=== PATIENT | female | born 1980 | race Caucasian/White ===

== ENCOUNTER 2017-12-19 21:03 | Emergency (ER) | payer OTHER ==
[2017-12-19] MEDS ORDERED: Sodium Chloride 0.9% 1000 ML 1,000 ML IV STA (21:40)
[2017-12-19] MEDS ORDERED: Zofran 4 MG/2 ML VIAL IV ONE (21:40)
[2017-12-19] MEDS ORDERED: Sodium Chloride 0.9% 1000 ML 1,000 ML ONE (21:43)
[2017-12-19] MEDS ORDERED: Zofran 4 MG/2 ML VIAL ONE (21:43)
[2017-12-19] MEDS ORDERED: TORAdol 30 mg Injection IV ONE (21:44)
--- NOTE | 2017-12-19 21:44 | ERPHSYRPT ---
- History of Present Illness Time Seen by Provider: 12/19/17 21:41 Historian: patient Exam Limitations: no limitations Patient Subjective Stated Complaint: began vomiting aroun 1430; fever began today Triage Nursing Assessment: Tmax 100 at home, vomiting x 8-9 since 1430, Physician History: 37 y/o female comes to the ER with complaints of nausea and vomiting that started this afternoon. Pt mentions she thinks she may have food poisoning. Pt has vomited 8 times and is not able to keep anything down. Pt reports having right sided abdominal pain after having vomiting episodes. Pt has had her gallbladder taken out. Pt describes the pain as sharp, intermittent, 6/10 and pt has not taken any pain meds. Pt also admits to having low grade fever of 100.6 at home. Pt denies any diarrhea, bloody stools or urinary symptoms. Timing/Duration: today Activities at Onset: none Quality: aching Abdominal Pain Onset Location: RUQ Pain Radiation: no radiation Severity of Pain-Max: moderate Severity of Pain-Current: moderate Modifying Factors: Improves With: nothing Associated Symptoms: nausea, vomiting Previous symptoms: no prior history Allergies/Adverse Reactions: cefaclor [From Ceclor] Allergy (Severe, Verified 03/24/16 12:23) anaphylaxis clindamycin HCl [From Cleocin] Allergy (Severe, Verified 03/24/16 12:23) anaphylaxis clindamycin palmitate HCl [From Cleocin] Allergy (Severe, Verified 03/24/16 12: 23) anaphylaxis clindamycin phosphate [From Cleocin] Allergy (Severe, Verified 03/24/16 12:23) anaphylaxis Home Medications: Vits W-Ca,Fe,FA(<1Mg) [] 1 tab PO DAILY 03/18/16 [History] Hx Tetanus, Diphtheria Vaccination/Date Given: Yes Hx Influenza Vaccination/Date Given: No Hx Pneumococcal Vaccination/Date Given: Yes Immunizations Up to Date: Yes - Review of Systems Constitutional: No Fever, No Chills Eyes: No Symptoms Ears, Nose, & Throat: No Symptoms Respiratory: No Cough, No Dyspnea Cardiac: No Chest Pain, No Edema, No Syncope Abdominal/Gastrointestinal: Abdominal Pain, Nausea, Vomiting, No Diarrhea Genitourinary Symptoms: No Dysuria Musculoskeletal: No Back Pain, No Neck Pain Skin: No Rash Neurological: No Dizziness, No Focal Weakness, No Sensory Changes Psychological: No Symptoms Endocrine: No Symptoms All Other Systems: Reviewed and Negative - Past Medical History Pertinent Past Medical History: Yes Neurological History: Migraines ENT History: No Pertinent History Cardiac History: No Pertinent History Respiratory History: Other Endocrine Medical History: No Pertinent History Musculoskeletal History: No Pertinent History GI Medical History: Gallbladder Disease History: No Pertinent History Psycho-Social History: No Pertinent History Female Reproductive Disorders: Other Other Medical History: 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 - Social History Smoking Status: Never smoker Exposure to second hand smoke: No Drug Use: none Patient Lives Alone: Yes - Female History Hx Last Menstrual Period: hysterectomy Hx Now: No - Nursing Vital Signs Nursing Vital Signs: Initial Vital Signs Temperature 98.7 F 12/19/17 21:18 Pulse Rate 104 H 12/19/17 21:18 Respiratory Rate 20 12/19/17 21:18 Blood Pressure 134/87 12/19/17 21:18 O2 Sat by Pulse Oximetry 96 12/19/17 21:18 Pain Scale Pain Intensity 4 - Physical Exam General Appearance: mild distress, alert Eye Exam: PERRL/EOMI, eyes nml inspection Ears, Nose, Throat Exam: normal ENT inspection, pharynx normal, moist mucous membranes Neck Exam: normal inspection, non-tender, supple, full range of motion Respiratory Exam: normal breath sounds, lungs clear, No respiratory distress Cardiovascular Exam: regular rate/rhythm, normal heart sounds Gastrointestinal/Abdomen Exam: soft, normal bowel sounds, No tenderness, No distention, No mass Back Exam: normal inspection, normal range of motion, No CVA tenderness, No vertebral tenderness Extremity Exam: normal inspection, normal range of motion, pelvis stable Neurologic Exam: alert, oriented x 3, cooperative, normal mood/affect, nml cerebellar function, sensation nml, No motor deficits Skin Exam: normal color, warm, dry SpO2: 96 Oxygen Delivery: Room Air - Course Nursing assessment & vital signs reviewed: Yes Ordered Tests: Active Orders 24 hr Category Date Time Status IV Insertion STAT Care 12/19/17 21:40 Active AMYLASE Stat Lab 12/19/17 21:50 Completed CBC W DIFF Stat Lab 12/19/17 21:50 Completed CMP Stat Lab 12/19/17 21:50 Completed LIPASE Stat Lab 12/19/17 21:50 Completed Medication Summary Generic Name Dose Route Start Last Admin Trade Name Sallie PRN Reason Stop Dose Admin Sodium Chloride 1,000 mls @ 999 mls/hr 12/19/17 21:40 12/19/17 21:48 Sodium Chloride 0.9% 1000 Ml IV 12/19/17 22:40 999 mls/hr .Q1H1M STA Administration Discontinued Medications Generic Name Dose Route Start Last Admin Trade Name Freq PRN Reason Stop Dose Admin Sodium Chloride Confirm 12/19/17 21:43 Sodium Chloride 0.9% 1000 Ml Administered 12/19/17 21:44 Dose 1,000 mls @ ud .ROUTE .STK-MED ONE Ketorolac Tromethamine 30 mg 12/19/17 21:44 12/19/17 21:49 Toradol 30 Mg Injection IV 12/19/17 21:45 30 mg STAT ONE Administration Ketorolac Tromethamine Confirm 12/19/17 21:49 Toradol 30 Mg Injection Administered 12/19/17 21:50 Dose 30 mg .ROUTE .STK-MED ONE Ondansetron HCl 4 mg 12/19/17 21:40 12/19/17 21:48 Zofran 4 Mg/2 Ml Vial IV 12/19/17 21:41 4 mg STAT ONE Administration Ondansetron HCl Confirm 12/19/17 21:43 Zofran 4 Mg/2 Ml Vial Administered 12/19/17 21:44 Dose 4 mg .ROUTE .STK-MED ONE Lab/Rad Data: Laboratory Result Diagrams 12/19/17 21:50 12/19/17 21:50 Laboratory Results 12/19/17 12/19/17 Range/Units 21:50 21:50 WBC 13.2 H (4.0-10.5) K/mm3 RBC 4.58 (4.1-5.4) M/mm3 Hgb 13.7 (12.0-16.0) gm/dl Hct 40.9 (35-47) % MCV 89.3 (78-100) fl MCH 29.9 (26-32) pg MCHC 33.5 (32-36) g/dl RDW 12.8 (11.5-14.0) % Plt Count 282 (150-450) K/mm3 MPV 11.8 H (6-9.5) fl Gran % 92.1 H (36.0-66.0) % Lymphocytes % 5.1 L (24.0-44.0) % Monocytes % 2.5 (0.0-12.0) % Eosinophils % 0.1 (0.00-5.0) % Basophils % 0.2 (0.0-0.4) % Basophils # 0.02 (0-0.4) Sodium 143 (136-145) mEq/L Potassium 3.8 (3.5-5.1) mEq/L Chloride 106 (98-107) mEq/L Carbon Dioxide 24.3 (21-32) mEq/L Anion Gap 16.4 H (5-15) MEQ/L BUN 15 (9-20) mg/dL Creatinine 0.80 (0.55-1.30) mg/dl Estimated GFR > 60 ML/MIN Glucose 120 H (70-110) MG/DL Calcium 9.2 (8.5-10.1) mg/dL Total Bilirubin 0.50 (0.2-1.0) mg/dL AST 18 (15-37) U/L ALT 27 (12-78) U/L Alkaline Phosphatase 114 (46-116) U/L Serum Total Protein 7.8 (6.4-8.2) gm/dL Albumin 4.0 (3.4-5.0) g/dL Amylase 39 (25-115) U/L Lipase 111 (73-393) U/L - Progress Progress: improved Progress Note: 12/19/17 22:31 Pt feels better after receiving NS fluids and zofran. The labs do not show any significant abnormalities. Pt will be d/c home on zofran. - Departure Time of Disposition: 22:31 Departure Disposition: Home Clinical Impression: Viral syndrome Condition: Stable Critical Care Time: No Referrals: WASHINGTON LEE NP [Primary Care Provider] - Instructions: Nausea -- Adult, Vomiting -- Adult Additional Instructions: Follow up with your primary care doctor if you should continue to have nausea, vomiting, abdominal pain, fever or chills. Prescriptions: Ondansetron ODT 4 MG [Zofran Odt 4 mg] 4 mg PO Q6H PRN PRN #10 tab.rapdis PRN Reason: Nausea/Vomiting
[2017-12-19] MEDS ORDERED: TORAdol 30 mg Injection ONE (21:49)
[2017-12-19 21:54] LABS: BASOPHIL % 0.2 % (0.0-0.4); Basophil (Absolute #) 0.02 (0-0.4); Eosinophil % 0.1 % (0.00-5.0); Eosinophil (Absolute #) 0.01 (0-0.5); Granulocyte Absolute (ANC) 12.14 (1.4-6.9); Granulocytes % 92.1 % (36.0-66.0); Hematocrit 40.9 % (35-47); Hemoglobin 13.7 gm/dl (12.0-16.0); Lymphocyte (Absolute #) 0.67 (1.0-4.6); Lymphocytes % 5.1 % (24.0-44.0); Mean Cell Volume 89.3 fl (78-100); Mean Corpuscular Hemoglobin 29.9 pg (26-32); Mean Corpuscular Hgb Concent. 33.5 g/dl (32-36); Mean Platelet Volume 11.8 fl (6-9.5); Monocyte (Absolute #) 0.33 (0.0-1.3); Monocytes % 2.5 % (0.0-12.0); Platelet Count 282 K/mm3 (150-450); Red Blood Count 4.58 M/mm3 (4.1-5.4); Red Cell Distribution Width 12.8 % (11.5-14.0); White Blood Count 13.2 K/mm3 (4.0-10.5)
[2017-12-19 22:15] LABS: ALKALINE PHOSPHATASE 114 U/L (46-116); AMYLASE 39 U/L (25-115); ANION GAP 16.4 MEQ/L (5-15); BLOOD UREA NITROGEN 15 mg/dL (9-20); CHLORIDE 106 mEq/L (98-107); Calcium 9.2 mg/dL (8.5-10.1); Carbon Dioxide 24.3 mEq/L (21-32); Glucose 120 MG/DL (70-110); LIPASE 111 U/L (73-393); Potassium 3.8 mEq/L (3.5-5.1); SGOT/AST 18 U/L (15-37); SGPT/ALT 27 U/L (12-78); SODIUM 143 mEq/L (136-145); Total Protein 7.8 gm/dL (6.4-8.2)
[2017-12-19 22:29] VITALS: BP 100/73; PULSE 94
[2017-12-19 22:34] VITALS: O2SAT 96
== END 2017-12-19 22:44 | disposition home or self-care (01) ==
LOC: ED 21:03
DX: B34.9 Viral infection, unspecified (principal)
CPT/HCPCS: 36000; 36415; 80053; 82150; 83690; 85025; 96374; 96375; 99283; 99284; J1885; J2405

== ENCOUNTER 2018-06-19 16:32 | Emergency (ER) | payer OTHER ==
--- NOTE | 2018-06-19 17:09 | ERPHSYRPT ---
- History of Present Illness Historian: patient Patient Subjective Stated Complaint: RLQ ABD PAIN SINCE LAST MONDAY. ALSO HAVING SOME NAUSEA. DENIES ANY DIFFICULTY WITH BOWELS AT THIS TIME. Triage Nursing Assessment: AMBULATED TO ROOM HOLDING RLQ ABD. SKIN W/D, COLOR NORMAL, RESP EASY. GUARDING RLQ. ABD SOFT, TENDER RLQ. Hx Tetanus, Diphtheria Vaccination/Date Given: Yes Hx Influenza Vaccination/Date Given: No Hx Pneumococcal Vaccination/Date Given: No <INGRID NUNEZ - Last Filed: 06/19/18 18:29> <CHARBEL ROBERTO - Last Filed: 06/19/18 21:10> - History of Present Illness Time Seen by Provider: 06/19/18 17:07 Physician History: mild to mod rlq ache since , nonrad, nausea, no fever, no injury, nonrad , last meal 11am, hx renal stones, pt refused pain med (INGRID NUNEZ) The patient is a 38-year-old female with her complaining of right lower quadrant abdominal pain since , 5 days. She's had mild nausea but no vomiting. She has not taken any [id number] pain medicines. The pain is getting worse today. She has no history of appendicitis. She sees Letty Lee and Dr. Chicas. (CHARBEL ROBERTO) Allergies/Adverse Reactions: cefaclor [From Ceclor] Allergy (Severe, Verified 06/19/18 16:59) anaphylaxis clindamycin HCl [From Cleocin] Allergy (Severe, Verified 06/19/18 16:59) anaphylaxis clindamycin palmitate HCl [From Cleocin] Allergy (Severe, Verified 06/19/18 16: 59) anaphylaxis clindamycin phosphate [From Cleocin] Allergy (Severe, Verified 06/19/18 16:59) anaphylaxis - Review of Systems Constitutional: No Fever Eyes: No Eye Redness Ears, Nose, & Throat: No Mouth Pain Respiratory: No Dyspnea Cardiac: No Chest Pain Abdominal/Gastrointestinal: Abdominal Pain Genitourinary Symptoms: No Dysuria Musculoskeletal: No Back Pain Skin: No Rash Neurological: No Dizziness <INGRID NUNEZ - Last Filed: 06/19/18 18:29> - Past Medical History Pertinent Past Medical History: Yes Neurological History: Migraines ENT History: No Pertinent History Cardiac History: No Pertinent History Respiratory History: Other Endocrine Medical History: No Pertinent History Musculoskeletal History: No Pertinent History GI Medical History: Gallbladder Disease History: No Pertinent History Psycho-Social History: No Pertinent History Female Reproductive Disorders: Other Other Medical History: 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 - Social History Smoking Status: Never smoker Exposure to second hand smoke: No Drug Use: none Patient Lives Alone: No - Female History Hx Now: No (HYSTER) <INGRID NUNEZ - Last Filed: 06/19/18 18:29> - Physical Exam General Appearance: no apparent distress Eye Exam: eyes nml inspection Ears, Nose, Throat Exam: moist mucous membranes Neck Exam: normal inspection Respiratory Exam: normal breath sounds Cardiovascular Exam: regular rate/rhythm Gastrointestinal/Abdomen Exam: tenderness, No rebound Back Exam: No CVA tenderness Extremity Exam: normal inspection Neurologic Exam: alert, oriented x 3, cooperative Skin Exam: normal color, warm, dry SpO2 Interpretation: normal SpO2: 99 Oxygen Delivery: Room Air <INGRID NUNEZ - Last Filed: 06/19/18 18:29> - Nursing Vital Signs Nursing Vital Signs: Initial Vital Signs Temperature 98.5 F 06/19/18 16:40 Pulse Rate 77 06/19/18 16:40 Respiratory Rate 16 06/19/18 16:40 Blood Pressure 127/87 06/19/18 16:40 O2 Sat by Pulse Oximetry 99 06/19/18 16:40 Pain Scale Pain Intensity 3 - CT Exams Abdomen/Pelvis CT Interpretation: Tele-radiologist Report (per Dr Bauer), Normal Appendix, Other (favors epiploic apendagitis) <CHARBEL ROBERTO - Last Filed: 06/19/18 21:10> Ordered Tests: Active Orders 24 hr Category Date Time Status IV Insertion STAT Care 06/19/18 17:06 Active ABDOMEN AND PELVIS W CONTRAST [CT] Stat Exams 06/19/18 18:10 Taken BLOOD CULTURE Stat Lab 06/19/18 17:44 Received CBC W DIFF Stat Lab 06/19/18 17:10 Completed CMP Stat Lab 06/19/18 17:10 Completed HCG QUALITATIVE,SERUM Stat Lab 06/19/18 17:10 Completed LIPASE Stat Lab 06/19/18 17:10 Completed Lactic Acid Stat Lab 06/19/18 17:20 Completed UA W/ MICROSCOPIC Stat Lab 06/19/18 17:11 Completed Medication Summary Generic Name Dose Route Start Last Admin Trade Name Freq PRN Reason Stop Dose Admin Sodium Chloride 1,000 mls @ 50 mls/hr 06/19/18 17:15 06/19/18 17:16 Sodium Chloride 0.9% 1000 Ml IV 07/19/18 17:14 50 mls/hr .Q20H ZOË Administration Discontinued Medications Generic Name Dose Route Start Last Admin Trade Name Freq PRN Reason Stop Dose Admin Ondansetron HCl 4 mg 06/19/18 17:12 06/19/18 17:16 Zofran 4 Mg/2 Ml Vial IV 06/19/18 17:13 4 mg STAT ONE Administration Ondansetron HCl Confirm 06/19/18 17:13 Zofran 4 Mg/2 Ml Vial Administered 06/19/18 17:14 Dose 4 mg .ROUTE .ST60mo-MED ONE Lab/Rad Data: Laboratory Result Diagrams 06/19/18 17:10 06/19/18 17:10 Laboratory Results 06/19/18 06/19/18 06/19/18 Range/Units 17:20 17:11 17:10 WBC (4.0-10.5) K/mm3 RBC (4.1-5.4) M/mm3 Hgb (12.0-16.0) gm/dl Hct (35-47) % MCV (78-100) fl MCH (26-32) pg MCHC (32-36) g/dl RDW (11.5-14.0) % Plt Count (150-450) K/mm3 MPV (6-9.5) fl Gran % (36.0-66.0) % Eos # (Auto) (0-0.5) Absolute Lymphs (auto) (1.0-4.6) Absolute Monos (auto) (0.0-1.3) Lymphocytes % (24.0-44.0) % Monocytes % (0.0-12.0) % Eosinophils % (0.00-5.0) % Basophils % (0.0-0.4) % Absolute Granulocytes (1.4-6.9) Basophils # (0-0.4) Sodium (137-145) mmol/L Potassium (3.5-5.1) mmol/L Chloride (98-107) mmol/L Carbon Dioxide (22-30) mmol/L Anion Gap (5-15) MEQ/L BUN (7-17) mg/dL Creatinine (0.52-1.04) mg/dL Estimated GFR ML/MIN Glucose (74-106) mg/dL Lactic Acid 0.9 (0.4-2.0) Calcium (8.4-10.2) mg/dL Total Bilirubin (0.2-1.3) mg/dL AST (14-36) U/L ALT (0-35) U/L Alkaline Phosphatase (38-126) U/L Serum Total Protein (6.3-8.2) g/dL Albumin (3.5-5.0) g/dL Lipase (23-300) U/L Serum , Qual NEGATIVE (Negative) Ur Collection Type VOID Urine Color LT.YELLOW (YELLOW) Urine Appearance CLEAR (CLEAR) Urine pH 6.0 (5-6) Ur Specific [place] 1.010 (1.005-1.025) Urine Protein NEGATIVE (Negative) Urine Ketones NEGATIVE (NEGATIVE) Urine Blood NEGATIVE (0-5) [place]/ul Urine Nitrite NEGATIVE (NEGATIVE) Urine Bilirubin NEGATIVE (NEGATIVE) Urine Urobilinogen NORMAL (0-1) mg/dL Ur Leukocyte Esterase 1+ (NEGATIVE) Urine Microscopic RBC 0-2 (0-2) /HPF Urine Microscopic WBC 2-5 (0-5) /HPF Ur Epithelial Cells MODERATE (FEW) /HPF Urine Bacteria RARE (NEGATIVE) /HPF Urine Culture Reflexed NO (NO) Urine Glucose NEGATIVE (NEGATIVE) mg/dL Specimen Received 06/19/18 1730 06/19/18 06/19/18 Range/Units 17:10 17:10 WBC 11.4 H (4.0-10.5) K/mm3 RBC 4.35 (4.1-5.4) M/mm3 Hgb 13.1 (12.0-16.0) gm/dl Hct 39.3 (35-47) % MCV 90.3 (78-100) fl MCH 30.1 (26-32) pg MCHC 33.3 (32-36) g/dl RDW 13.7 (11.5-14.0) % Plt Count 267 (150-450) K/mm3 MPV 12.0 H (6-9.5) fl Gran % 64.1 (36.0-66.0) % Eos # (Auto) 0.08 (0-0.5) Absolute Lymphs (auto) 3.26 (1.0-4.6) Absolute Monos (auto) 0.73 (0.0-1.3) Lymphocytes % 28.5 (24.0-44.0) % Monocytes % 6.4 (0.0-12.0) % Eosinophils % 0.7 (0.00-5.0) % Basophils % 0.3 (0.0-0.4) % Absolute Granulocytes 7.34 H (1.4-6.9) Basophils # 0.03 (0-0.4) Sodium 141 (137-145) mmol/L Potassium 4.0 (3.5-5.1) mmol/L Chloride 104 (98-107) mmol/L Carbon Dioxide 28 (22-30) mmol/L Anion Gap 13.5 (5-15) MEQ/L BUN 22 H (7-17) mg/dL Creatinine 0.87 (0.52-1.04) mg/dL Estimated GFR > 60.0 ML/MIN Glucose 99 (74-106) mg/dL Lactic Acid (0.4-2.0) Calcium 9.5 (8.4-10.2) mg/dL Total Bilirubin 0.30 (0.2-1.3) mg/dL AST 18 (14-36) U/L ALT 19 (0-35) U/L Alkaline Phosphatase 93 (38-126) U/L Serum Total Protein 7.4 (6.3-8.2) g/dL Albumin 4.4 (3.5-5.0) g/dL Lipase 71 (23-300) U/L Serum , Qual (Negative) Ur Collection Type Urine Color (YELLOW) Urine Appearance (CLEAR) Urine pH (5-6) Ur Specific [place] (1.005-1.025) Urine Protein (Negative) Urine Ketones (NEGATIVE) Urine Blood (0-5) [place]/ul Urine Nitrite (NEGATIVE) Urine Bilirubin (NEGATIVE) Urine Urobilinogen (0-1) mg/dL Ur Leukocyte Esterase (NEGATIVE) Urine Microscopic RBC (0-2) /HPF Urine Microscopic WBC (0-5) /HPF Ur Epithelial Cells (FEW) /HPF Urine Bacteria (NEGATIVE) /HPF Urine Culture Reflexed (NO) Urine Glucose (NEGATIVE) mg/dL Specimen Received <INGRID NUNEZ - Last Filed: 06/19/18 18:29> - Progress Progress: improved Discussed with : Kade (discussed pt with Dr Braun who will talk with Dr Yu) Counseled pt/family regarding: lab results, diagnosis, need for follow-up, rad results <CHARBEL ROBERTO - Last Filed: 06/19/18 21:10> - Progress Progress Note: 06/19/18 18:[address] Roberto at 19:00 (INGRID NUNEZ) 06/19/18 19:12 Pt care discssed and care accepted from Dr Nunez at 19:00. (CHARBEL ROBERTO) <INGRID NUNEZ - Last Filed: 06/19/18 18:29> - Departure Time of Disposition: 21:06 Departure Disposition: Home Critical Care Time: No <CHARBEL ROBERTO - Last Filed: 06/19/18 21:10> - Departure Clinical Impression: Epiploic appendagitis Condition: Stable Referrals: WASHINGTON LEE NP [Primary Care Provider] - Additional Instructions: You have epiploic appendagitis. You were given Zofran 4 mg, Toradol 30 mg, and fluids by IV in the ER. Continue pain relief with naproxen 500 mg 2 times a day for 5 days and then 2 times a day as needed. Follow-up with your primary medical doctor in one to 2 days. Prescriptions: Naproxen 500 mg PO BID #30 tablet.
[2018-06-19] MEDS ORDERED: Zofran 4 MG/2 ML VIAL ONE (17:13)
[2018-06-19] MEDS ORDERED: Sodium Chloride 0.9% 1000 ML 1,000 ML ONE (17:13)
[2018-06-19] MEDS: Sodium Chloride 0.9% 1000 ML 1,000 ML IV SCH (17:16)
[2018-06-19] MEDS: Zofran 4 MG/2 ML VIAL IV ONE (17:16)
[2018-06-19 17:41] LABS: BASOPHIL % 0.3 % (0.0-0.4); Basophil (Absolute #) 0.03 (0-0.4); Eosinophil % 0.7 % (0.00-5.0); Eosinophil (Absolute #) 0.08 (0-0.5); Granulocyte Absolute (ANC) 7.34 (1.4-6.9); Granulocytes % 64.1 % (36.0-66.0); Hematocrit 39.3 % (35-47); Hemoglobin 13.1 gm/dl (12.0-16.0); Lymphocyte (Absolute #) 3.26 (1.0-4.6); Lymphocytes % 28.5 % (24.0-44.0); Mean Cell Volume 90.3 fl (78-100); Mean Corpuscular Hemoglobin 30.1 pg (26-32); Mean Corpuscular Hgb Concent. 33.3 g/dl (32-36); Monocyte (Absolute #) 0.73 (0.0-1.3); Monocytes % 6.4 % (0.0-12.0); Platelet Count 267 K/mm3 (150-450); Red Blood Count 4.35 M/mm3 (4.1-5.4); Red Cell Distribution Width 13.7 % (11.5-14.0); White Blood Count 11.4 K/mm3 (4.0-10.5)
[2018-06-19 18:00] LABS: ALBUMIN 4.4 g/dL (3.5-5.0); ALKALINE PHOSPHATASE 93 U/L (38-126); ANION GAP 13.5 MEQ/L (5-15); BLOOD UREA NITROGEN 22 mg/dL (7-17); CHLORIDE 104 mmol/L (98-107); Calcium 9.5 mg/dL (8.4-10.2); Carbon Dioxide 28 mmol/L (22-30); Creatinine 1 0.87 mg/dL (0.52-1.04); Glucose 99 mg/dL (74-106); LIPASE 71 U/L (23-300); SGOT/AST 18 U/L (14-36); SGPT/ALT 19 U/L (0-35); SODIUM 141 mmol/L (137-145); Total Protein 7.4 g/dL (6.3-8.2)
[2018-06-19 18:27] LABS: Appearance CLEAR (CLEAR); Bilirubin NEGATIVE (NEGATIVE); Blood NEGATIVE Ery/ul (0-5); Glucose NEGATIVE (NEGATIVE); Ketones NEGATIVE (NEGATIVE); Leukocyte Esterase 1+ (NEGATIVE); Nitrite NEGATIVE (NEGATIVE); Protein,Urine Dip NEGATIVE (Negative); RBC 0-2 /HPF (0-2); Urobilinogen NORMAL mg/dL (0-1)
[2018-06-19 18:28] LABS: Bacteria RARE /HPF (NEGATIVE); Epithelial Cells MODERATE /HPF (FEW)
[2018-06-19] MEDS ORDERED: TORAdol 30 mg Injection ONE ×2 (21:02→21:05)
[2018-06-19] MEDS: TORAdol 30 mg Injection IV ONE (21:06)
[2018-06-19 21:15] VITALS: BP 118/83; PULSE 80; O2SAT 98
--- NOTE | 2018-06-20 08:42 | XRAY ---
Indication: Right lower quadrant pain, nausea, and vomiting. Elevated WBC. Multiple contiguous axial images obtained through the abdomen and pelvis using 80 cc Isovue 370 contrast only. Comparison: April 24, 2012. Lung bases demonstrate mild bibasilar dependent atelectasis and small right base calcified granuloma. No infiltrates or effusion. Heart is not enlarged. Noncontrasted stomach and bowel loops appear nonobstructed. Normal appendix. Mild diffuse scattered colonic fecal debris throughout. There is focal pericolonic fatty stranding just medial to the cecum favoring epiploic appendagitis. Interval hysterectomy and cholecystectomy. No free fluid/air. Tiny calcified splenic granuloma. Remaining liver, pancreas, spleen, adrenal glands, kidneys, ureters, bladder, and aorta appear unremarkable. No pathologic retroperitoneal lymphadenopathy. Osseous structures intact. No ventral or inguinal hernias. Impression: 1. Cecal epiploic appendagitis. No free fluid/air. 2. Mild fecal stasis without obstruction. 3. Remaining CT abdomen/pelvis with contrast exam is negative. CTDI 24.99
== END 2018-06-19 21:18 | disposition home or self-care (01) ==
LOC: ED 16:32
DX: K63.89 Other specified diseases of intestine (principal); R10.31 Right lower quadrant pain; R11.0 Nausea
CPT/HCPCS: 36000; 36415; 74177; 80053; 81000; 83605; 83690; 84703; 85025; 87040; 96360; 96374; 96375; 99284; J1885; J2405

== ENCOUNTER 2024-04-26 15:03 | Emergency (ER) | payer OTHER ==
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
[2024-04-26 16:04] VITALS: TEMP 98.3
[2024-04-26] MEDS: TYLENOL 325 MG PO ONE (16:14)
[2024-04-26] MEDS ORDERED: Sodium Chloride 0.9% 1000 ML 1,000 ML ONE (16:15)
[2024-04-26 16:18] LABS: Absolute Neutrophil Ct (ANC) 8.88 x10^3/uL (1.56-6.13); BASOPHIL % 0.3 % (0.1-1.2); Basophil (Absolute #) 0.04 x10^3/uL (0.01-0.08); Eosinophil % 0.4 % (0.7-5.8); Eosinophil (Absolute #) 0.05 x10^3/uL (0.04-0.36); Hematocrit 43.3 % (34.1-44.9); Hemoglobin 14.4 g/dL (11.2-15.7); IMMATURE GRAN # 0.06 x10^3u/L (0.001-0.031); IMMATURE GRAN % 0.5 % (0.001-0.429); Lymphocytes % 19.3 % (19.3-51.7); Mean Cell Volume 90.4 fL (79.4-94.8); Mean Corpuscular Hemoglobin 30.1 pg (25.6-32.2); Mean Corpuscular Hgb Concent. 33.3 g/dL (32.2-35.5); Mean Platelet Volume 11.7 fL (9.4-12.3); Monocyte (Absolute #) 0.57 x10^3/uL (0.24-0.86); Monocytes % 4.8 % (4.7-12.5); Neutrophil % 74.7 % (34.0-71.1); Platelet Count 309 x10^3/uL (182-369); Red Blood Count 4.79 x10^6/uL (3.93-5.22); Red Cell Distribution Width 12.3 % (11.7-14.4); White Blood Count 11.9 x10^3/uL (3.98-10.04)
[2024-04-26] MEDS: Sodium Chloride 0.9% 1000 ML 1,000 ML IV STA (16:22)
[2024-04-26 16:27] LABS: Appearance Clear (Clear); Bacteria None Seen /HPF (None Seen); Bilirubin Negative (Negative); Blood Negative (Negative); Epithelial Cells Rare /HPF (None Seen); Glucose, Urine Negative (Negative); Hyaline Casts NONE SEEN /LPF (0-2); Ketones Trace (Negative); Leukocyte Esterase Trace (Negative); Nitrite Negative (Negative); Ph 5.5 (4.6-8.0); Protein,Urine Dip 30 (Negative); RBC 0-2 /HPF (0-5); Specific Gravity >=1.030 (1.005-1.030); Urobilinogen 0.2 mg/dL (0.2)
[2024-04-26 16:29] LABS: ALBUMIN 4.9 g/dL (3.5-5.0); BILIRUBIN,TOTAL 0.7 mg/dL (0.2-1.3); Creatinine 1 0.72 mg/dL (0.52-1.04); Potassium 4.6 mmol/L (3.5-5.1); Total Protein 8.4 g/dL (6.3-8.2)
[2024-04-26 16:33] LABS: ADD URINE CULTURE? NO (NO)
[2024-04-26 17:49] LABS: CHLAMYDIA DNA NOT DETECTED (NEGATIVE); GC DNA Probe NOT DETECTED (NEGATIVE)
[2024-04-26 17:51] VITALS: RESP 16; O2SAT 98
[2024-04-26 18:19] LABS: HCG SERUM TEST NEGATIVE (NEGATIVE)
[2024-04-26] MEDS ORDERED: FLAGYL 500 MG IVPB 500 MG/100 ML BAG IV ONE (18:24)
[2024-04-26] MEDS: FLAGYL 500 MG IVPB 500 MG/100 ML BAG IV STA (18:29)
[2024-04-26] MEDS: LEVOFLOXACIN 750MG/150ML D5W 750 MG/150 ML BAG IV ONE (18:32)
[2024-04-26] MEDS ORDERED: Levofloxacin 250MG Tablet ONE (18:33)
[2024-04-26] MEDS: Levofloxacin 250MG Tablet PO ONE (18:35)
--- NOTE | 2024-04-26 19:22 | XRAY ---
CLINICAL HISTORY: pain COMPARISON: None. TECHNIQUE: Axial CT abdomen and pelvis was performed with IV contrast. Sagittal and coronal reconstructed images were also obtained. One of the following dose reduction techniques were utilized for this exam: Automated exposure control, adjustment of the mA and/or kV according to patient size, and use of iterative reconstruction. FINDINGS: The liver is normal in size and outline. No focal parenchymal abnormality. No focal hepatic mass. The portal vein and hepatic veins look normal. Cholecystectomy status, no biliary dilatation. The spleen, pancreas, and adrenal glands are unremarkable. The kidneys are normal in size and shape. No calculi or hydronephrosis is seen. Normal urinary bladder and prostate. Normal stomach and small bowel. Cecum, ileocecal junction and appendix appear unremarkable. Ascending colon, transverse colon, descending colon, sigmoid colon and rectum are within normal limits. No bowel mass lesion or abnormal wall thickening. No intestinal obstruction or free gas. There is no evidence of significant mesenteric or retroperitoneal enlarged lymph nodes. No ascites or collection. The scanned lower chest: small round calcified nodule in the base of right lower lobe (5x4mm), suggesting calcified lymph node/old granuloma No suspicious bony lesion. IMPRESSION: Unremarkable abdominal organs. Electronically Signed by: Mallory Abbott MD. (04/26/2024 19:18:57 EDT)
[2024-04-26 20:05] VITALS: BP 120/80; PULSE 96
== END 2024-04-26 20:06 | disposition home or self-care (01) ==
LOC: ED 15:03
DX: R10.33 Periumbilical pain (principal); R19.7 Diarrhea, unspecified; N39.0 Urinary tract infection, site not specified; R11.2 Nausea with vomiting, unspecified; Z79.85 Long-term (current) use of injectable non-insulin antidiabetic drugs; Z79.899 Other long term (current) drug therapy
CPT/HCPCS: 36000; 36415; 74177; 80053; 81001; 83605; 83690; 83735; 84484; 84703; 85025; 87491; 87591; 93005; 96365; 96374; 99284; A9270-GY

== ENCOUNTER 2024-05-13 09:38 | Day surgery (SDC) | payer OTHER ==
--- NOTE | 2024-05-13 08:19 | HP ---
HISTORY OF PRESENT ILLNESS: The patient has a subcutaneous mass proximal right thigh, enlarging, through the legs. PAST MEDICAL HISTORY: Obesity. PAST SURGICAL HISTORY: Tonsillectomy and adenoidectomy, right lower lobe thoracotomy for benign tumor, hysterectomy and cholecystectomy in the past. FAMILY HISTORY: Negative with regard to this problem. SOCIAL HISTORY: No smoking or alcohol abuse. MEDICATIONS: Wegovy, estradiol. ALLERGIES: Ceclor and Cleocin. REVIEW OF SYSTEMS: Twelve systems reviewed. No chest pain or palpitations. Other systems negative or noncontributory as above and per preadmission questionnaire. PHYSICAL EXAMINATION: VITAL SIGNS: Height 5 feet 2 inches. BMI 29.63. HEENT: Sclerae nonicteric. Extraocular movements intact. NECK: No JVD. CHEST: Equal excursion, nonlabored breathing. CARDIOVASCULAR: Regular rate and rhythm. ABDOMEN: Soft. EXTREMITIES: No cyanosis. Right medial thigh subcutaneous mass, question lipoma. NEUROLOGIC: Alert and oriented, moving all extremities symmetrically. PSYCHIATRIC: Appropriate mood and affect. SKIN: Dry. IMPRESSION: Enlarging subcutaneous mass or a lipoma thigh area on the right. I feel patient would benefit from excisional biopsy. Risks explained in detail including but not limited to bleeding or infection, risk of aches and pains, burning or numbness, risk of anesthesia, DVT, PE, pneumonia but not limited to. She understands and agrees to planned procedure. Otherwise, she will continue her weight loss medication Wegovy. We will proceed with excisional biopsy as an outpatient.
[2024-05-13 10:10] VITALS: RESP 16
[2024-05-13] MEDS ORDERED: Sensorcaine 0.25% 10 ML ONE (10:10)
[2024-05-13] MEDS: Lactated Ringers 1,000 ML IV SCH (10:13)
[2024-05-13] MEDS: ATROPINE SULFATE 1MG SYR ABBOJECT IV ONE (10:19)
[2024-05-13 10:26] LABS: Absolute Neutrophil Ct (ANC) 2.82 x10^3/uL (1.56-6.13); BASOPHIL % 0.5 % (0.1-1.2); Basophil (Absolute #) 0.03 x10^3/uL (0.01-0.08); Eosinophil % 1.1 % (0.7-5.8); Eosinophil (Absolute #) 0.07 x10^3/uL (0.04-0.36); Hematocrit 37.4 % (34.1-44.9); Hemoglobin 12.5 g/dL (11.2-15.7); IMMATURE GRAN # 0.04 x10^3u/L (0.001-0.031); IMMATURE GRAN % 0.7 % (0.001-0.429); Lymphocyte (Absolute #) 2.77 x10^3/uL (1.18-3.74); Lymphocytes % 45.3 % (19.3-51.7); Mean Cell Volume 90.8 fL (79.4-94.8); Mean Corpuscular Hemoglobin 30.3 pg (25.6-32.2); Mean Corpuscular Hgb Concent. 33.4 g/dL (32.2-35.5); Mean Platelet Volume 11.4 fL (9.4-12.3); Monocyte (Absolute #) 0.38 x10^3/uL (0.24-0.86); Monocytes % 6.2 % (4.7-12.5); Neutrophil % 46.2 % (34.0-71.1); Platelet Count 256 x10^3/uL (182-369); Red Blood Count 4.12 x10^6/uL (3.93-5.22); Red Cell Distribution Width 12.7 % (11.7-14.4); White Blood Count 6.1 x10^3/uL (3.98-10.04)
[2024-05-13 10:38] LABS: ANION GAP 13.2 MEQ/L (5-15); Calcium 9.1 mg/dL (8.4-10.2); Creatinine 1 0.55 mg/dL (0.52-1.04); EST GLOMERULAR FILTRATION RATE 117.3 ML/MIN; Potassium 3.8 mmol/L (3.5-5.1)
[2024-05-13] MEDS ORDERED: ATROPINE SULFATE 1MG IV ONE (10:50)
[2024-05-13] MEDS ORDERED: Lactated Ringers 1,000 ML IV ONE (10:51)
[2024-05-13] MEDS: Lactated Ringers 1,000 ML IV ONE (10:56)
[2024-05-13] MEDS ORDERED: SUBLIMAZE 100 MCG/2 ML ONE ×2 (12:20→13:46)
[2024-05-13] MEDS ORDERED: ROCURONIUM BROMIDE IV ONE (12:20)
[2024-05-13] MEDS ORDERED: DIPRIVAN 200 MG/20 ML IV ONE (12:20)
[2024-05-13] MEDS ORDERED: Xylocaine-Mpf 2% 5 Ml Vial ONE (12:20)
[2024-05-13] MEDS ORDERED: KEFZOL 1 GM ONE (12:53)
[2024-05-13] MEDS ORDERED: Zofran 4 MG/2 ML VIAL ONE ×2 (13:07→13:46)
[2024-05-13] MEDS ORDERED: Decadron 4 MG INJ ONE ×2 (13:08→13:09)
[2024-05-13] MEDS ORDERED: BRIDION 200MG/2ML IV ONE (13:08)
[2024-05-13] MEDS ORDERED: DEXMEDETOMIDINE 80 MCG/20ML-NS IV ONE (13:18)
[2024-05-13] MEDS ORDERED: Hydromorphone 1 mg/ml Injection ONE (14:01)
[2024-05-13 14:52] VITALS: BP 102/67; O2SAT 97
[2024-05-13 14:59] VITALS: PULSE 57; TEMP 97.4
--- NOTE | 2024-05-14 11:24 | OP ---
SURGERY DATE/TIME: 05/13/2024 5874 - [id number] PREOPERATIVE DIAGNOSIS: Enlarging subcutaneous mass proximal medial right thigh. POSTOPERATIVE DIAGNOSIS: Enlarging subcutaneous mass proximal medial right thigh. PROCEDURE: Excisional biopsy of 2 separate lipomas, right thigh. More superficial one was 5 cm, the deeper one was 3 cm, with intermediate closure. SURGEON: Dev Mcdaniel MD ANESTHESIA: General. DESCRIPTION OF PROCEDURE AND FINDINGS: Site was confirmed and marked in preop holding area. She was taken to the operating room and general anesthesia was induced. She was prepped in the usual sterile fashion in lithotomy position. After waiting for anesthesia to be available, she was eventually prepped and draped in the usual sterile fashion. After official time-out, a longitudinal incision was made overlying this mass in the proximal subcutaneous right thigh. Dissection carried down to a lobulated 5 cm lipomatous density. It was carefully dissected free from the surrounding normal subcutaneous around there. This was passed off. Underneath this, there seemed to be a separate lipomatous density that was about 3 cm in size. This was carefully dissected off the underlying fascia and passed off. This was about 3 cm in size. Two separate lipomas were excised, 1 was 5 cm and a separate second one was 3 cm in size. They were passed off to Pathology. Good hemostasis noted. The deeper subcutaneous was closed with interrupted 3-0 Vicryl, superficial subcutaneous closed with 3-0 Vicryl, skin closed with 4-0 Vicryl and some Dermabond. Sterile dressings would be applied. Marcaine 0.25% local was injected around the area. The patient tolerated the procedure well. There were no immediate complications.
== END 2024-05-13 15:10 | disposition home or self-care (01) ==
LOC: SDC 09:38
PROVIDERS: ATTEND Surgery
DX: R22.41 Localized swelling, mass and lump, right lower limb (principal)
CPT/HCPCS: 36415; 80048; 85025; J0461; J0690; J1100; J1170; J2405; J2704; J3010

== ENCOUNTER 2024-12-11 21:31 | Emergency (ER) | payer OTHER ==
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
[2024-12-11 22:20] VITALS: TEMP 97.5
[2024-12-11 22:39] LABS: Absolute Neutrophil Ct (ANC) 5.49 x10^3/uL (1.56-6.13); BASOPHIL % 0.7 % (0.1-1.2); Basophil (Absolute #) 0.07 x10^3/uL (0.01-0.08); Eosinophil % 6.8 % (0.7-5.8); Eosinophil (Absolute #) 0.64 x10^3/uL (0.04-0.36); Hematocrit 34.9 % (34.1-44.9); Hemoglobin 11.5 g/dL (11.2-15.7); IMMATURE GRAN # 0.02 x10^3u/L (0.001-0.031); IMMATURE GRAN % 0.2 % (0.001-0.429); Lymphocytes % 26.7 % (19.3-51.7); Mean Cell Volume 90.9 fL (79.4-94.8); Mean Corpuscular Hemoglobin 29.9 pg (25.6-32.2); Mean Platelet Volume 11.2 fL (9.4-12.3); Monocyte (Absolute #) 0.63 x10^3/uL (0.24-0.86); Monocytes % 6.7 % (4.7-12.5); Neutrophil % 58.9 % (34.0-71.1); Platelet Count 322 x10^3/uL (182-369); Red Blood Count 3.84 x10^6/uL (3.93-5.22); Red Cell Distribution Width 13.2 % (11.7-14.4); White Blood Count 9.4 x10^3/uL (3.98-10.04)
[2024-12-11 22:44] LABS: ALBUMIN 4.5 g/dL (3.5-5.0); ANION GAP 14.9 MEQ/L (5-15); BILIRUBIN,TOTAL 0.5 mg/dL (0.2-1.3); Calcium 9.6 mg/dL (8.4-10.2); Creatinine 1 0.66 mg/dL (0.52-1.04); EST GLOMERULAR FILTRATION RATE 111.6 ML/MIN; Total Protein 7.2 g/dL (6.3-8.2)
[2024-12-11 22:47] LABS: Appearance Clear (Clear); Bacteria None Seen /HPF (None Seen); Bilirubin Negative (Negative); Blood Negative (Negative); Epithelial Cells None Seen /HPF (None Seen); Glucose, Urine Negative (Negative); Hyaline Casts NONE SEEN /LPF (0-2); Ketones Negative (Negative); Leukocyte Esterase Trace (Negative); Nitrite Negative (Negative); Protein,Urine Dip Negative (Negative); RBC 0-2 /HPF (0-5); Specific Gravity <=1.005 (1.005-1.030); Urobilinogen 0.2 mg/dL (0.2); WBC 0-2 /HPF (0-5)
[2024-12-12] MEDS ORDERED: ANTIVERT 25 MG ONE (00:30)
[2024-12-12] MEDS: ANTIVERT 25 MG PO ONE (00:34)
--- NOTE | 2024-12-12 01:46 | XRAY ---
CLINICAL HISTORY: Dizziness COMPARISON: None. TECHNIQUE: Multiple axial images are obtained from the skull base to the vertex without contrast. CT scan was performed according to ALARA (as low as reasonable achievable). FINDINGS: The brain shows normal morphology, attenuation, and volume for age. No evidence of space occupying lesion, hemorrhage, edema, mass effect, midline shift, extra axial collection, or hydrocephalus is noted. Ventricles, sulci, and basal cisterns are symmetric and normal in size and configuration. The martines-white matter differentiation is preserved. Visualized paranasal sinuses and mastoid air cells are well aerated. Orbital contents are within normal limits. Bony structures are intact. IMPRESSION: 1. No evidence of acute intracranial abnormality is demonstrated Electronically Signed by: Humphrey Nelson MD. (12/12/2024 01:42:24 EST)
[2024-12-12 02:03] VITALS: RESP 14
[2024-12-12 03:22] VITALS: BP 136/55; PULSE 67; O2SAT 97
== END 2024-12-12 03:32 | disposition home or self-care (01) ==
LOC: ED 21:31
DX: R42 Dizziness and giddiness (principal); R11.0 Nausea; R53.1 Weakness; Z79.84 Long term (current) use of oral hypoglycemic drugs; Z79.899 Other long term (current) drug therapy
CPT/HCPCS: 36415; 70450; 80053; 81001; 83735; 84484; 85025; 93005; 99284; 99285; A9270-GY

== ENCOUNTER 2025-07-09 08:10 | Day surgery (SDC) | payer OTHER ==
[2025-07-09] MEDS ORDERED: LIDOCAINE HCL 2% 100 MG/5 ML IJ ONE (08:11)
[2025-07-09] MEDS ORDERED: propofoL IV ONE (09:53)
[2025-07-09] MEDS ORDERED: Lactated Ringers 1,000 ML IV ONE (12:42)
--- NOTE | 2025-07-09 19:17 | XRAY ---
Indication: Right C2-C4 MBB. Intraoperative fluoroscopy provided for 16 seconds. 2 digital spot image submitted for interpretation demonstrates posterior needle tips projecting over expected right C2-C4 nerve roots. Correlate with intraoperative findings/report.
--- NOTE | 2025-07-09 19:38 | XRAY ---
16 seconds of fluoroscopy was used in surgery for a right C2-C4 MBB.
== END 2025-07-09 10:25 | disposition home or self-care (01) ==
LOC: SDC-PAIN 08:10
PROVIDERS: ATTEND Psychiatry & Neurology Pain Medicine
DX: M47.812 Spondylosis without myelopathy or radiculopathy, cervical region (principal)

== ENCOUNTER 2025-07-23 09:37 | Day surgery (SDC) | payer OTHER ==
[2025-07-23] MEDS ORDERED: methylPREDNISolone acetate IM ONE (09:38)
[2025-07-23] MEDS ORDERED: BUPIVACAINE 0.5% VIAL IJ ONE (09:38)
[2025-07-23] MEDS ORDERED: propofoL IV ONE (12:21)
--- NOTE | 2025-07-23 14:21 | XRAY ---
Indication: Right C2-C4 MBB Intraoperative fluoroscopy provided for 14 seconds. 3 digital spot images submitted for interpretation demonstrates posterior needle tips projecting over expected right C2-C4 nerve roots. Correlate with intraoperative findings/report.
--- NOTE | 2025-07-23 14:25 | XRAY ---
14 seconds of fluoroscopy used in surgery for a right C2-C4 MBB.
[2025-07-23] MEDS ORDERED: Lactated Ringers 1,000 ML IV ONE (15:17)
== END 2025-07-23 12:55 | disposition home or self-care (01) ==
LOC: SDC-PAIN 09:37
PROVIDERS: ATTEND Psychiatry & Neurology Pain Medicine
DX: M47.812 Spondylosis without myelopathy or radiculopathy, cervical region (principal)